=== PATIENT | male | born 1995 | race Two or more races ===

== ENCOUNTER 2024-11-19 12:34 | Emergency (ER) | payer SELFPAY ==
[~2024-11-19] VITALS: Ht 162.6 cm; Wt 68.2 kg
[2024-11-19 12:34] VITALS: TEMP 97.9
[2024-11-19 12:44] VITALS: PULSE 91; RESP 17; O2SAT 97
--- NOTE | 2024-11-19 13:07 | ED.PDOC ---
Altered Mental Status HPI Comments This is a 29 year-old male who presents to the ED via EMS S/P overdose at 1145 this morning. Per EMS, patient overdosed from a Crystal Meth based drug with Fentanyl IN. Per EMS, patient was found to have an oxygen saturation of 80%. 4MG of Narcan was administered approximately 30 minutes ago. Patient arrived to the ED A&OX4, vitals are stable. Patient has no further complaints or modifiers at this time. Patient otherwise denies N/V/D, fever, chills, slurred speech, headache, or weakness. Chief Complaint: Overdose Time Seen by MD: 12:36 Reviewed Notes: Photography Instructor Notes, Medications, Allergies Allergies: Coded Allergies: NO KNOWN ALLERGIES (Unverified , 11/19/24) Information Source: Patient, Emergency Med Personnel Mode of Arrival: EMS Severity: Moderate Timing: Minutes Prehospital treatment: Other (4MG Narcan ) Recent: Medication/Drug Abuse Associated Signs and Symptoms: Other (LOC ) Past Medical History PAST MEDICAL HISTORY: Denies Surgical History: Denies all surgeries Family History Family History: Reviewed,noncontributory to illness, No family hx of Cancer, No family hx of DM, No family hx of Heart narendra, No family hx of HTN, No family hx ofKidney narendra, No family hx of Liver narendra, No family hx of Lung narendra, No family hx of Stroke Social History Smoker: Unknown Alcohol: Unknown Drugs: Cocaine, Methamphetamine Constitutional: denies: chills, diaphoresis, fatigue, fever, malaise, sweats, weakness, others EENTM: denies: blurred vision, double vision, ear bleeding, ear discharge, ear drainage, ear pain, ear ringing, eye pain, eye redness, hearing loss, mouth pain, mouth swelling, nasal discharge, nose bleeding, nose congestion, nose pain, photophobia, tearing, throat pain, throat swelling, voice changes, others Respiratory: denies: cough, hemoptysis, orthopnea, SOB at rest, shortness of breath, SOB with excertion, stridor, wheezing, others Cardiovascular: denies: chest pain, dizzy spells, diaphoresis, Dyspnea on exertion, edema, irregular heart beat, left arm pain, lightheadedness, palpitations, PND, syncope, others Gastrointestinal: denies: abdomen distended, abdominal pain, blood streaked bowels, constipated, diarrhea, dysphagia, difficulty swallowing, hematemesis, melena, nausea, poor appetite, poor fluid intake, rectal bleeding, rectal pain, vomiting, others Genitourinary: denies: burning, dysuria, flank pain, frequency, hematuria, incontinence, penile discharge, penile sore, pain, testicle pain, testicle swelling, urgency, others Neurological: reports: others (ALOC ); denies: dizziness, fainting, headache, left sided numbness, left sided weakness, numbness, paresthesia, pre-existing deficit, right sided numbness, right sided weakness, seizure, speech problems, tingling, tremors, weakness Musculoskeletal: denies: back pain, gout, joint pain, joint swelling, muscle pain, muscle stiffness, neck pain, others Integumetry: denies: bruises, change in color, change in hair/nails, dryness, laceration, lesions, lumps, rash, wounds, others Allergic/Immunocompromised: denies: Difficulty Healing, Frequent Infections, Hives, Itching, others Hematologic/Lymphatic: denies: anemia, blood clots, easy bleeding, easy bruising, swollen glands, others Endocrine: denies: excessive hunger, excessive sweating, excessive thirst, excessive urination, flushing, intolerance to cold, intolerance to heat, unexplained weight gain, unexplained weight loss, others Psychiatric: denies: anxiety, bipolar disorder, depression, hopeless, panic disorder, schizophrenia, sleepless, suicidal, others All Other Systems: Reviewed and Negative Physical Exam General Appearance: Moderate Distress HEENT: Normal ENT Inspection, Pharynx Normal, TMs Normal Neck: Full Range of Motion, Non-Tender, Normal, Normal Inspection Respiratory: Chest Non-Tender, Lungs Clear, No Accessory Muscle Use, No Respiratory Distress, Normal Breath Sounds Cardiovascular: No Edema, No JVD, No Murmur, No Gallop, Normal Peripheral P ulses, Regular Rate/Rhythm Breast Exam: Deferred Gastrointestinal: No Organomegaly, Non Tender, No Pulsatile Mass, Normal Bowel Sounds, Soft Genitalia: Deferred Pelvic: Deferred Rectal: Deferred Extremities: No calf tenderness, Normal capillary refill, Normal inspection, Normal range of motion, Non-tender, No pedal edema Musculoskeletal : Apperance: Normal Neurologic: Alert, associate professor physician II-XII nml as Tested, No Motor Deficits, Normal Affect, Normal Mood, No Sensory Deficits Cerebellar Function: Normal Reflexes: Normal Skin: Dry, Normal Color, Warm Peripheral Pulses: 3+ Radial (R), 3+ Radial (L) Lymphatic: No Adenopathy Was a procedure done? Was a procedure done?: No Differential Diagnosis (ALOC) Differential Diagnosis: Dehydration, Meningitis, Seizure, Closed Head Injury, Drug Overdose X-Ray, Labs, Meds, VS Vital Signs Date Time Temp Pulse Resp B/P (MAP) Pulse Ox O2 Delivery O2 Flow Rate FiO2 11/19/24 13:54 60 15 130/78 (95) 97 11/19/24 12:45 88 11/19/24 12:44 91 17 97 Room Air* 0 21 11/19/24 12:43 90 17 138/81 (100) 97 11/19/24 12:34 97.9 90 18 127/84 97 97.9 Lab Test 11/19/24 12:59 Range/Units Plasma/Serum Blood Alcohol < 3.0 <10 mg/dL Patient alert. No sign of any distress. Has taken fentanyl. Vitals stable. Denies suicidal or homicidal ideation. Blood alcohol level within normal limits. Tolerating diet. No injuries. No leg swelling. Denies shortness a breath. Denies chest pain. Explained to the patient. Was told to follow up with his primary care physician. Was told to come back if there is any problem. Images Reviewed?: Images reviewed and evaluated by me Time of 1ST Reevaluation: 13:25 Reevaluation 1ST: Improved Patient Education/Counseling: Diagnosis, Treatment Family Education/Counseling: No Family Present Medical Screening: No EMC Exist At This Time SEPSIS Sepsis Screen Date sepsis recognized/suspect: Nov 19, 2024 Time Sepsis recognized/suspect: 1233 Recent Procedure: No On Antibiotic Therapy: No Respiratory Rate >20: No Heart Rate >90: No Temp<36 C (96.8 F) or >38.3 C: No SBP <90 or MAP <65 mmHG: No New Acute Mental Status Change: No Is the patient on CPAP, BIPAP,: No Physician Orders Drug Screen (11/19/24 12:51) Vital Signs Date Time Temp Pulse Resp B/P (MAP) Pulse Ox O2 Delivery O2 Flow Rate FiO2 11/19/24 13:54 60 15 130/78 (95) 97 11/19/24 12:45 88 11/19/24 12:44 91 17 97 Room Air* 0 21 11/19/24 12:43 90 17 138/81 (100) 97 11/19/24 12:34 97.9 90 18 127/84 97 97.9 Departure 1 Departure Time of Disposition: 14:10 Impression: Primary Impression: Accidental fentanyl overdose Qualified Codes: T40.411A - Poisoning by fentanyl or fentanyl analogs, accidental (unintentional), initial encounter Disposition: HOME / SELF CARE / HOMELESS Condition: Good Discharged With: Self Critical Care Note Critical Care Time?: No Stability Stability form required: No Heart Score Heart Score: Heart Score Response (Comments) Value History N/A 0 EKG N/A 0 Age N/A 0 Risk Factors N/A 0 Troponin N/A 0 Total 0 I personally scribed for MARKO GOODSON MD ([email or web address]) on 11/19/24 at 13:07. Electronically submitted by Rachael Schaefer ([employer]). I personally scribed for MARKO GOODSON MD ([email or web address]) on 11/19/24 at 13:09. Electronically submitted by Rachael Schaefer ([employer]). MARKO GOODSON MD Nov 19, 2024 13:07
[2024-11-19 15:49] VITALS: BP 112/58; PULSE 64; RESP 12; O2SAT 98
== END 2024-11-19 15:59 | disposition home or self-care (01) ==
LOC: ER 12:34 → EDBD 12:34 → ER 15:59
DX: T40.411A Poisoning by fentanyl or fentanyl analogs, accidental (unintentional), initial encounter (principal); Z79.899 Other long term (current) drug therapy; Y92.89 Other specified places as the place of occurrence of the external cause
CPT/HCPCS: 36415; 80320